=== PATIENT | female | born 1950 | race Caucasian/White ===

== ENCOUNTER 2020-04-15 11:46 | Emergency (ER) | payer OTHER, BC ==
[2020-04-15] MEDS ORDERED: ACETAMINOPHEN 325 MG TABLET (FP) PO ONE (12:11)
[2020-04-15 12:21] VITALS: TEMP 98; BMI 31.6
[2020-04-15] MEDS ORDERED: ACETAMINOPHEN 325 MG TABLET (FP) ONE (12:22)
[2020-04-15 16:00] VITALS: BP 138/68; PULSE 82
== END 2020-04-15 15:59 | disposition home or self-care (01) ==
LOC: JER 11:46
DX: R51 Headache (principal); W01.198A Fall on same level from slipping, tripping and stumbling with subsequent striking against other object, initial encounter
CPT/HCPCS: 70450-TC; 72125-TC; 73030-TC-RT-FY; 99284-25